=== PATIENT | female | born 2000 | race Caucasian/White ===

== ENCOUNTER 2024-07-22 14:14 | Emergency (ER) | payer BC, SELFPAY ==
[2024-07-22 14:17] VITALS: BP 132/82; PULSE 120; RESP 18; TEMP 36.6; O2SAT 98; BMI 25.3
--- NOTE | 2024-07-22 14:33 | ED.ABDPAIN ---
HPI - Abdominal Pain General Time Seen by Provider: 14:33 Date Seen: 08/02/24 Chief Complaint: Abdominal Pain Stated Complaint: Ulcerative colitis flareup Time Seen by Provider: 07/22/24 14:33 Source: patient, RN notes reviewed and old records reviewed Mode of arrival: ambulatory Limitations: no limitations History of Present Illness HPI narrative: Sandra is a very pleasant 24-year-old female diagnosed with ulcerative colitis by colonoscopy in the past year who comes to the emergency room with complaints of abdominal pain stomach cramps nausea and vomiting. Sandra notes that she had been having ?stomach issues? and had a colonoscopy at which time she was found to have ulcerative colitis. She has no family history of this. She had her 1st ulcerative colitis flare approximately 1 month ago and was seen in [place]. She was experiencing stomach cramps bloody in tarry stools. At that time they started steroids. She had tapered down to 5 mg daily of prednisone when she noticed an increase of her abdominal pain and was seen on July 20 by a GI specialist at [facility]. They increased her some prednisone to 12.5 mg a day but she and her friend who accompanies her here today note that they have not started that medicine and is still at the pharmacy. Today she states that her abdominal discomfort is worse and that she is experiencing nausea and vomiting and lightheadedness. She has not had any fevers but does note feeling sweaty. She had her gallbladder removed on May 01. She denies any possibility of . Currently patient is on mesalamine, fluoxetine, Zofran, and Compazine. Related Data Home Medications ?Medication ?Instructions ?Recorded ?Confirmed fluoxetine 20 mg capsule 20 mg PO DAILY 07/22/24 07/22/24 mesalamine 0.375 gram 1.5 g PO QAM 07/22/24 07/22/24 capsule,extended release 24 hr Allergies Allergy/AdvReac Type Severity Reaction Status Date / Time No Known Drug Allergies Allergy Verified 07/22/24 14:20 Review of Systems Status of ROS Reports: 10 or more systems reviewed and unremarkable except as noted in History and below Const Reports: chills and fatigue; Denies: fever Eyes Denies: change in vision ENMT Denies: throat pain or nasal congestion Cardio Denies: chest pain or shortness of breath with exertion Resp Denies: shortness of breath or cough GI Reports: abdominal pain, nausea, vomiting and diarrhea; Denies: blood in stool Denies: painful urination Endo Reports: fatigue PFSH PFS Social History Smoking Status: Never smoker Do you use any of these nicotine containing products: None Second hand tobacco smoke exposure: No How often do you have a drink containing alcohol: monthly or less How many standard drinks containing alcohol do you have on a typical day: 1 or 2 How often do you have six or more drinks on one occasion: Never AUDIT-C Alcohol total score: 1 Non-prescribed substance use: denies use service: No Exam Narrative: Exam Narrative: Patient is alert and oriented. She is not in any acute distress and is interactive with her friend to his here. External ears eyes nose clear. Heart with a rapid rate but normal rhythm. Lungs are clear. Abdomen is with diffuse discomfort but no masses are palpated. No rebound tenderness. Lower extremities her without edema. She is moving all her extremities. Const: Vital Signs, click to edit/add: Vital Signs - 24 hr 07/22/24 14:17 Temperature 97.8 F Pulse Rate [Right Pulse Oximeter] 120 H Respiratory Rate 18 Blood Pressure [Ri ght Upper Arm] 132/82 Pulse Oximetry 98 Oxygen Delivery Me thod Room Air Documenting provider has reviewed patient's vital signs: yes Course Course ED Course: Differential diagnosis includes but is not limited to ulcerative colitis flare, gastroenteritis, anxiety. Will place IV give 1 L of normal saline Zofran 4 mg and dexamethasone 10 mg. At this time will hold off on any pain medications as up-to-date suggest avoiding narcotics as this could cause toxic megacolon and NSAIDs can worsen ulcerative colitis. Reevaluation(s) Reevaluation #1: Patient had continued vomiting after Zofran and thus gave her Compazine 2.5 mg IV. Vomiting has improved. Will try to replace potassium as it is 3.0 today. Reevaluation #2: Patient is doing much better. She is now tolerating her potassium. She feels safe going home after receiving 2 L of normal saline. Vital Signs Vital signs: Initial Vital Signs Temperature 97.8 F 07/22/24 14:17 Temperature Source Temporal Artery Scan 07/22/24 14:17 Pulse Rate 120 H 07/22/24 14:17 Respiratory Rate 18 07/22/24 14:17 Blood Pressure 132/82 07/22/24 14:17 Blood Pressure Mean 98 07/22/24 14:17 Blood Pressure Position Sitting 07/22/24 14:17 Pulse Oximetry 98 07/22/24 14:17 Oxygen Delivery Method Room Air 07/22/24 14:17 Vital Signs Temperature 97.8 F 07/22/24 14:17 Pulse Rate 120 H 07/22/24 14:17 Respiratory Rate 18 07/22/24 14:17 Blood Pressure 132/82 07/22/24 14:17 Pulse Oximetry 98 07/22/24 14:17 Oxygen Delivery Method Room Air 07/22/24 14:17 Temperature 97.8 F 07/22/24 14:17 Pulse Rate 120 H 07/22/24 14:17 Respiratory Rate 18 07/22/24 14:17 Blood Pressure 132/82 07/22/24 14:17 Pulse Oximetry 98 07/22/24 14:17 Oxygen Delivery Method Room Air 07/22/24 14:17 Medications Administered Medications: Discontinued Medications Generic Name Dose Route Start Last Admin Trade Name Ramirezq PRN Reason Stop Dose Admin Dexamethasone 10 mg 07/22/24 14:43 07/22/24 15:04 Dexamethasone 10 Mg/Ml Inj IVP 07/22/24 14:44 10 mg ONCE ONE Administration Sodium Chloride 1,000 mls @ 1,000 mls/hr 07/22/24 14:44 07/22/24 16:04 0.9 % Sodium Chloride 1000 Ml IV 07/22/24 15:43 Infused .Q1H BERNARDO Infusion Sodium Chloride 1,000 mls @ 1,000 mls/hr 07/22/24 16:21 07/22/24 17:04 0.9 % Sodium Chloride 1000 Ml IV 07/22/24 17:20 Infused .Q1H BERNARDO Infusion Ondansetron HCl 4 mg 07/22/24 14:43 07/22/24 15:02 Ondansetron 2 Mg/Ml Inj IVP 07/22/24 14:44 4 mg ONCE ONE Administration Potassium Bicarbonate 50 meq 07/22/24 17:17 07/22/24 17:22 Potassium Bicarb 25 Meq Effervescent Tab PO 07/22/24 17:18 50 meq ONCE ONE Administration Prochlorperazine 2.5 mg 07/22/24 15:59 07/22/24 16:03 Prochlorperazine 5 Mg/Ml Vial IVP 07/22/24 16:00 2.5 mg ONCE ONE Administration MDM - Abdominal Pain MDM Narrative Medical decision making narrative: 1. Ulcerative colitis flare-patient notes ongoing flare and recent visit to GI specialists with instructions to increase prednisone to 12.5 mg daily. Patient has not done that at this point. Patient given IV dexamethasone 10 mg and instructed to continue the 12.5 mg daily starting tomorrow. 4+ urinary ketones noted. The patient received 2 L of normal saline. Initial Zofran minimally helped vomiting and thus she was given Compazine 2.5 mg IV with complete relief of symptoms. Patient does think she is having darker or bloody stools but hemoglobin is reassuring today at 15.5 and white count reassuring at 10.33. No imaging done today given her significant relief of symptoms and abdominal exam. 2. Hypokalemia-potassium 3.0. Fifty mEq of p.o. potassium taken p.o.. 3. Disposition- home at this time. Recommend starting the higher dose of prednisone tomorrow if she did receive dexamethasone in the ED today. Recommend follow-up with her team primary care physician. patient does have Compazine tablets that she may use at home as needed. Of course, for worsening symptoms recommend seeking medical attention at emergency room. Medical Records Medical records narrative: No available records in our system Lab Data Attestation: I reviewed the patient's lab results. Labs: Lab Results 07/22/24 07/22/24 Range/Units 14:50 15:00 WBC 10.33 (4.50-11.00) K/uL RBC 5.30 H (4.00-5.20) m/uL Hgb 15.5 (12.0-16.0) gm/dL Hct 45.7 (33.0-51.0) % MCV 86 (80-100) fL MCH 29 (26-34) pg MCHC 34 (32-36) gm/dL RDW Coeff of Hiral 12.4 (11.5-15.5) % Plt Count 339 (140-440) K/uL Neut % (Auto) 69.9 (42.0-72.0) % Lymph % (Auto) 17.4 L (20-44) % [place] % (Auto) 9.7 (0.0-11.0) % Eos % (Auto) 1.9 (0.0-7.0) % Baso % (Auto) 0.2 (0.0-3.0) % Neut # (Auto) 7.22 H (1.7-7.0) K/uL Lymph # (Auto) 1.80 (0.90-2.90) K/uL [place] # (Auto) 1.00 H (0.00-0.90) K/UL Eos # (Auto) 0.20 (0.00-0.50) K/uL Baso # (Auto) 0.02 (0.00-0.30) K/uL Abs Immat Gran (auto) 0.09 (0.00-0.30) K/uL Imm/Tot Granulo (auto) 0.9 % Sodium 139 (135-149) mmol/L Potassium 3.0 L (3.6-5.1) mmol/L Chloride 98 (96-114) mmol/L Carbon Dioxide 26 (20-32) mmol/L Anion Gap 15 (7-15) mEq/L BUN 8 (5-24) mg/dL Creatinine 0.5 (0.5-1.5) mg/dL Estimated Creat Clear 156.12 Estimated GFR 134 ml/min Glucose 100 (60-115) mg/dL Calcium 9.3 (8.4-10.6) mg/dL Total Bilirubin 0.4 (0.1-1.5) mg/dL AST 20 (12-35) U/L ALT 14 (4-35) U/L Alkaline Phosphatase 96 (40-150) U/L C-Reactive Protein 1.0 (0.5-1.0) mg/dL Total Protein 8.4 H (6.0-8.3) g/dL Albumin 5.0 (3.3-5.0) g/dL Urine Color Yellow (Yellow) Urine Appearance Clear (Clear) Urine pH 5.5 (5.0-8.5) Ur Specific [place] >= 1.030 (1.000-1.030) Urine Protein Trace A (Negative) Urine Glucose (UA) Negative (Negative) Urine Ketones 4+ A (Negative) Urine Blood Negative (Negative) Urine Nitrite Negative (Negative) Urine Bilirubin 1+ A (Negative) Urine Urobilinogen 0.2 (0.2-1.0) Ur Leukocyte Esterase Negative (Negative) Urine RBC 0-2 (0-2) Urine WBC 0-2 (0-5) Ur Squamous Epith Cells Few (None-Few) Amorphous Sediment Moderate A (None) Urine Bacteria None (None) Discharge Plan Discharge Clinical Impression: Ulcerative colitis, Abdominal pain, Hypokalemia Patient Disposition: Home, Self-Care Condition: Improved Additional Instructions: Start your higher dose of prednisone 12.5 mg tomorrow. Try to stay as hydrated as possible not just with water but also electrolyte containing compounds (Powerade, Gatorade, etc). Seek medical attention for worsening symptoms. You responded better to Compazine also known as prochlorperazine so you may use this medication if needed for vomiting as this is already prescribed to you Prescriptions: No Action fluoxetine 20 mg capsule 20 mg PO DAILY mesalamine 0.375 gram capsule,extended release 24hr 1.5 g PO QAM Follow Up/Referrals: Ladan Lopez MD [Primary Care Provider] - Stand Alone Forms: [employer] Info Instructions
[2024-07-22 14:56] LABS: Appearance Urine Clear (Clear); Bilirubin Urine 1+ (Negative); Blood Urine Negative (Negative); Color Urine Yellow (Yellow); Glucose Urine Negative (Negative); Ketones Urine 4+ (Negative); Leukocyte Esterase Urine Negative (Negative); Nitrite Urine Negative (Negative); Protein Urine Trace (Negative); Specific Gravity Urine >= 1.030 (1.000-1.030); Urobilinogen Urine 0.2 (0.2-1.0); pH Urine 5.5 (5.0-8.5)
[2024-07-22] MEDS: 0.9 % SODIUM CHLORIDE 1000 ml 1,000 ML IV ×2 (15:01→16:05)
[2024-07-22] MEDS: ONDANSETRON 2 MG/ML inj 4 MG IVP (15:02)
[2024-07-22] MEDS: dexAMETHasone 10 MG/ML inj IVP (15:04)
[2024-07-22 15:07] LABS: Amorphous Sediment Urine Moderate; RBC Urine 0-2 (0-2); Squamous Epithelial Cell Urine Few (None-Few); WBC Urine 0-2 (0-5)
[2024-07-22 15:25] LABS: Basophils Absolute Auto 0.02 K/uL (0.00-0.30); Basophils Percent Auto 0.2 % (0.0-3.0); Eosinophils Percent Auto 1.9 % (0.0-7.0); Hematocrit 45.7 % (33.0-51.0); Hemoglobin* 15.5 gm/dL (12.0-16.0); Immature Granulocytes Abs Auto 0.09 K/uL (0.00-0.30); Immature Granulocytes Pct Auto 0.9 %; Lymphocytes Percent Auto 17.4 % (20-44); Mean Corpuscular HGB Conc 34 gm/dL (32-36); Mean Corpuscular Hemoglobin 29 pg (26-34); Mean Corpuscular Volume 86 fL (80-100); Monocytes Percent Auto 9.7 % (0.0-11.0); Neutrophils Absolute Auto 7.22 K/uL (1.7-7.0); Neutrophils Percent Auto 69.9 % (42.0-72.0); Platelet Count* 339 K/uL (140-440); RDW Coefficient of Variation % 12.4 % (11.5-15.5); Slide Review Reflex No; White Blood Count* 10.33 K/uL (4.50-11.00)
[2024-07-22 15:36] LABS: Chloride* 98 mmol/L (96-114)
[2024-07-22 15:37] LABS: Sodium* 139 mmol/L (135-149)
[2024-07-22 15:39] LABS: Creatinine* 0.5 mg/dL (0.5-1.5); Est. Creatinine Clearance* 156.12; Estimated Glomerular Filt Rate 134 ml/min
[2024-07-22 15:40] LABS: Alanine Aminotransferase* 14 U/L (4-35); Alkaline Phosphatase* 96 U/L (40-150); Anion Gap 15 mEq/L (7-15); Aspartate Amino Transferase* 20 U/L (12-35); Bilirubin Total* 0.4 mg/dL (0.1-1.5); Blood Urea Nitrogen* 8 mg/dL (5-24); Calcium* 9.3 mg/dL (8.4-10.6); Carbon Dioxide* 26 mmol/L (20-32); Glucose* 100 mg/dL (60-115); Total Protein* 8.4 g/dL (6.0-8.3)
[2024-07-22] MEDS: PROCHLORPERAZINE 5 MG/ML VIAL 2.5 MG IVP (16:03)
[2024-07-22] MEDS: POTASSIUM BICARB 25 MEQ EFFERVESCENT TAB 50 MEQ PO (17:22)
== END 2024-07-22 18:44 | disposition home or self-care (01) ==
PROVIDERS: Emergency Provider Family Medicine; PCP General Practice
DX: K51.90 Ulcerative colitis, unspecified, without complications (principal); E87.6 Hypokalemia
CPT/HCPCS: 36415; 80053; 81001; 85025; 86140; 96374; 96375; 99284; A9270; J0780; J1100; J2405; J7030

== ENCOUNTER 2024-08-16 17:03 | Emergency (ER) | payer BC, SELFPAY ==
[2024-08-16 17:17] VITALS: BP 107/71; PULSE 102; RESP 16; TEMP 36.9; O2SAT 98; BMI 25.0
--- NOTE | 2024-08-16 17:36 | ED_ITS ---
HPI - General Adult General Chief complaint: Abdominal Pain Stated complaint: vomiting blood Time Seen by Provider: 08/16/24 17:29 History of Present Illness HPI narrative: C/O abdominal/ back pain pt states that she had 2 episode of vomiting today and one had bright red blood in it. plus multiple episodes of emesis yesterday. pt. has hx. of UC and gallbladder removal. pain started Wednesday of last week while at rest. pt. denies any trauma to the area or recent bending/ lifting /twisting. 24-year-old young woman presenting to the emergency department with concern of vomiting blood. Has had abdominal pain generalized and with some back pain now about day 5. Has had some looser stools no blood. Does have a history of hemorrhoids and history of rectal bleeding I believe associated with ulcerative colitis. Multiple vomiting episodes yesterday. Twice today with some small clots of blood in 1 of the emesis. No fever. No dysuria though has some discomfort with urination. Experiencing also headache. Has been treating with rather bland diet. No concerning food ingestions recently. History of cholecystectomy. Diagnosed with ulcerative colitis about a year ago. Currently being tapered on flare from ulcerative colitis at 10 mg prednisone. Does normally take mesalamine as well. Related Data Home Medications ?Medication ?Instructions ?Recorded ?Confirmed fluoxetine 20 mg capsule 10 mg PO DAILY 07/22/24 08/16/24 mesalamine 0.375 gram 1.5 g PO QAM 07/22/24 07/22/24 capsule,extended release 24 hr prednisone 10 mg tablet PO 08/16/24 Allergies Allergy/AdvReac Type Severity Reaction Status Date / Time No Known Drug Allergies Allergy Verified 08/16/24 19:21 Review of Systems Status of ROS: Reports: 6 or more systems reviewed and unremarkable except as noted in History and below [facility] Social History Smoking Status: Never smoker Do you use any of these nicotine containing products: None Second hand tobacco smoke exposure: No How often do you have a drink containing alcohol: never How often do you have six or more drinks on one occasion: Never AUDIT-C Alcohol total score: 0 Non-prescribed substance use: denies use service: No Exam Narrative: Exam Narrative: Pleasant. Calm. Skin is warm dry. Breathing easily. Lungs are clear. Heart in elevated rate regular rhythm. Oropharynx WNL without lesions. Neck is supp le without lymphadenopathy. Abdomen with present bowel sounds is diffusely mildly uncomfortable. No peritoneal signs. A little sore to percussion in the left flank. Extremities are well perfused without edema. Skin is warm and dry without rash apparent. Const: Vital Signs, click to edit/add: Vital Signs - 24 hr 08/16/24 17:17 08/16/24 18:04 08/16/24 20:32 Temperature 98.4 F Pulse Rate [Pulse Oximeter] 102 H 88 88 Respiratory Rate 16 16 Blood Pressure [[facility] Upper Arm] 107/71 106/59 L Pulse Oximetry 98 98 Oxygen Delivery Me thod Room Air Room Air Documenting provider has reviewed patient's vital signs: yes Course Vital Signs Vital signs: Initial Vital Signs Temperature 98.4 F 08/16/24 17:17 Temperature Source Temporal Artery Scan 08/16/24 17:17 Pulse Rate 102 H 08/16/24 17:17 Respiratory Rate 16 08/16/24 17:17 Blood Pressure 107/71 08/16/24 17:17 Blood Pressure Mean 83 08/16/24 17:17 Blood Pressure Position Sitting 08/16/24 17:17 Pulse Oximetry 98 08/16/24 17:17 Oxygen Delivery Method Room Air 08/16/24 17:17 Vital Signs Temperature 98.4 F 08/16/24 17:17 Pulse Rate 102 H 08/16/24 17:17 Respiratory Rate 16 08/16/24 17:17 Blood Pressure 107/71 08/16/24 17:17 Pulse Oximetry 98 08/16/24 17:17 Oxygen Delivery Method Room Air 08/16/24 17:17 Temperature 98.4 F 08/16/24 17:17 Pulse Rate 88 08/16/24 20:32 Respiratory Rate 16 08/16/24 20:32 Blood Pressure 106/59 L 08/16/24 20:32 Pulse Oximetry 98 08/16/24 20:32 Oxygen Delivery Method Room Air 08/16/24 20:32 Medications Administered Medications: Discontinued Medications Generic Name Dose Route Start Last Admin Trade Name Freq PRN Reason Stop Dose Admin Sodium Chloride 500 mls @ 500 mls/hr 08/16/24 17:48 08/16/24 19:35 0.9 % Sodium Chloride 500 Ml IV 08/16/24 18:47 Not Given .Q1H ONE Sodium Chloride 1,000 mls @ 1,000 mls/hr 08/16/24 19:02 08/16/24 20:34 0.9 % Sodium Chloride 1000 Ml IV 08/16/24 20:01 Infused .Q1H ONE Infusion Ketorolac Tromethamine 30 mg 08/16/24 17:48 08/16/24 18:10 Ketorolac 30 Mg/Ml Inj IVP 08/16/24 17:49 30 mg ONCE ONE Administration Ondansetron HCl 4 mg 08/16/24 17:48 08/16/24 18:10 Ondansetron 2 Mg/Ml Inj IVP 08/16/24 17:49 4 mg ONCE ONE Administration Medical Decision Making MDM Narrative Medical decision making narrative: She could be having ulcerative colitis flare in addition to an infectious gastroenteritis. Repeated vomiting I think would explain the noted hematemesis. No history of concern otherwise for esophageal varices. Would look for urinary tract infection. Symptoms seem inconsistent with kidney stone/ureteral colic. We treated for pain with ketorolac which as IV should not think will trouble ulcerative colitis. Also give Zofran. IV hydration as well. Symptoms improved during time in the ER. Blood and associated bilirubin present in urine. With this and findings of moderately elevated transaminases, did ultimately image abdomen. She has had cholecystectomy as noted above. Generally does not appear to have infection. Adding hepatitis panel. Monospot is negative. Review of IV contrasted CT of abdomen and pelvis by myself seems to show a eliazar le prominent liver and spleen Radiology over-read as below TECHNIQUE: CT of the abdomen and pelvis with intravenous contrast (74 milliliters Isovue 370). FINDINGS: Lung bases: No pleural effusion. Liver: Smooth hepatic contour. No suspicious hepatic lesions are identified. Gallbladder and biliary tree: Surgically absent gallbladder. Spleen: Borderline splenomegaly. Pancreas: Normal. Adrenal glands: Normal. Kidneys and ureters: No hydroureteronephrosis. No suspicious renal lesions are identified. Bladder: The bladder is decompressed. Visualized reproductive organs: The uterus is anteverted. Gastrointestinal tract: Mild apparent sigmoid colon wall thickening, possibly due to underdistention. No associated fat stranding. No focal abnormally dilated loops of bowel. Peritoneal cavity: No free fluid or free air. Lymph nodes: Several abnormally enlarged perirectal lymph nodes measuring up to 9 millimeters (2/125). Abnormally numerous and mildly prominent although subcentimeter lymph nodes throughout the abdominal mesentery. Vessels: No abdominal aortic aneurysm. Abdominal and pelvic wall: Mild scarring in the ventral abdominal wall. Bones: No acute osseous findings. No CT findings to suggest sacroiliitis. IMPRESSION: 1. Several abnormally enlarged perirectal lymph nodes measuring up to 9 millimeters. Abnormally numerous and mildly prominent although nonenlarged lymph nodes throughout the abdominal mesentery. 2. Mild apparent sigmoid colon wall thickening, possibly due to underdistention. Colitis is not excluded. 3. Borderline splenomegaly. 4. Status post cholecystectomy. I did discuss findings of enlarged lymph nodes as well with Sandra. Would suspect this to be inflammatory/reactive but would recommend follow-up. See patient discharge plan for further discussion Medical Records Medical records reviewed: Yes I reviewed the patient's medical records Lab Data Lab results reviewed: Yes I reviewed the patient's lab results Labs: Lab Results 08/16/24 08/16/24 08/16/24 Range/Units 18:00 18:16 18:44 WBC 7.37 (4.50-11.00) K/uL RBC 4.09 (4.00-5.20) m/uL Hgb 11.9 L (12.0-16.0) gm/dL Hct 35.8 (33.0-51.0) % MCV 88 (80-100) fL MCH 29 (26-34) pg MCHC 33 (32-36) gm/dL RDW Coeff of Hiral 13.4 (11.5-15.5) % Plt Count 142 (140-440) K/uL Neut % (Auto) 19.7 L (42.0-72.0) % Lymph % (Auto) 72.2 H (20-44) % [place] % (Auto) 5.8 (0.0-11.0) % Eos % (Auto) 1.6 (0.0-7.0) % Baso % (Auto) 0.3 (0.0-3.0) % Neut # (Auto) 1.50 L (1.7-7.0) K/uL Lymph # (Auto) 5.30 H (0.90-2.90) K/uL [place] # (Auto) 0.40 (0.00-0.90) K/UL Eos # (Auto) 0.12 (0.00-0.50) K/uL Baso # (Auto) 0.02 (0.00-0.30) K/uL Abs Immat Gran (auto) 0.03 (0.00-0.30) K/uL Imm/Tot Granulo (auto) 0.4 % ESR 12 (2-20) mm/hr Sodium 137 (135-149) mmol/L Potassium 3.2 L (3.6-5.1) mmol/L Chloride 105 (96-114) mmol/L Carbon Dioxide 24 (20-32) mmol/L Anion Gap 8 (7-15) mEq/L BUN 4 L (5-24) mg/dL Creatinine 0.4 L (0.5-1.5) mg/dL Estimated Creat Clear 195.15 Estimated GFR 142 ml/min Glucose 111 (60-115) mg/dL Calcium 8.2 L (8.4-10.6) mg/dL Total Bilirubin 0.7 (0.1-1.5) mg/dL Direct Bilirubin 0.4 (0.0-0.5) mg/dL AST 156 H (12-35) U/L ALT 310 H (4-35) U/L Alkaline Phosphatase 167 H (40-150) U/L C-Reactive Protein 0.7 (0.5-1.0) mg/dL Total Protein 6.9 (6.0-8.3) g/dL Albumin 4.0 (3.3-5.0) g/dL Urine Color [place] A (Yellow) Urine Appearance Cloudy A (Clear) Urine pH 7.0 (5.0-8.5) Ur Specific [place] 1.020 (1.000-1.030) Urine Protein 1+ A (Negative) Urine Glucose (UA) Negative (Negative) Urine Ketones Trace A (Negative) Urine Blood 2+ A (Negative) Urine Nitrite Negative (Negative) Urine Bilirubin 1+ A (Negative) Urine Urobilinogen >=8.0 A (0.2-1.0) Ur Leukocyte Esterase Negative (Negative) Urine RBC 10-25 A (0-2) Urine WBC 0-2 (0-5) Ur Squamous Epith Cells Few (None-Few) Amorphous Sediment Many A (None) Urine Bacteria Few A (None) Urine HCG, Qual Negative (Negative) Monoscreen Negative (Negative) Lab Acknowledgement Test Added 08/16/24 Range/Units 19:57 WBC (4.50-11.00) K/uL RBC (4.00-5.20) m/uL Hgb (12.0-16.0) gm/dL Hct (33.0-51.0) % MCV (80-100) fL MCH (26-34) pg MCHC (32-36) gm/dL RDW Coeff of Hiral (11.5-15.5) % Plt Count (140-440) K/uL Neut % (Auto) (42.0-72.0) % Lymph % (Auto) (20-44) % [place] % (Auto) (0.0-11.0) % Eos % (Auto) (0.0-7.0) % Baso % (Auto) (0.0-3.0) % Neut # (Auto) (1.7-7.0) K/uL Lymph # (Auto) (0.90-2.90) K/uL [place] # (Auto) (0.00-0.90) K/UL Eos # (Auto) (0.00-0.50) K/uL Baso # (Auto) (0.00-0.30) K/uL Abs Immat Gran (auto) (0.00-0.30) K/uL Imm/Tot Granulo (auto) % ESR (2-20) mm/hr Sodium (135-149) mmol/L Potassium (3.6-5.1) mmol/L Chloride (96-114) mmol/L Carbon Dioxide (20-32) mmol/L Anion Gap (7-15) mEq/L BUN (5-24) mg/dL Creatinine (0.5-1.5) mg/dL Estimated Creat Clear Estimated GFR ml/min Glucose (60-115) mg/dL Calcium (8.4-10.6) mg/dL Total Bilirubin (0.1-1.5) mg/dL Direct Bilirubin (0.0-0.5) mg/dL AST (12-35) U/L ALT (4-35) U/L Alkaline Phosphatase (40-150) U/L C-Reactive Protein (0.5-1.0) mg/dL Total Protein (6.0-8.3) g/dL Albumin (3.3-5.0) g/dL Urine Color (Yellow) Urine Appearance (Clear) Urine pH (5.0-8.5) Ur Specific [place] (1.000-1.030) Urine Protein (Negative) Urine Glucose (UA) (Negative) Urine Ketones (Negative) Urine Blood (Negative) Urine Nitrite (Negative) Urine Bilirubin (Negative) Urine Urobilinogen (0.2-1.0) Ur Leukocyte Esterase (Negative) Urine RBC (0-2) Urine WBC (0-5) Ur Squamous Epith Cells (None-Few) Amorphous Sediment (None) Urine Bacteria (None) Urine HCG, Qual (Negative) Monoscreen (Negative) Lab Acknowledgement Test Added Discharge Plan Discharge Clinical Impression: Abdominal pain, Hepatitis, Ulcerative colitis, Hematuria Patient Disposition: Home, Self-Care Condition: Improved Additional Instructions: Focus on hydration and continued bland diet. Double your prednisone as we discussed/settled on over the next week and then return to your taper. Please follow-up early next week for recheck of your labs including liver and urinalysis. Hepatitis panel is pending here. If positive you should receive a call with further recommendation. Take copy of this image report to your follow-up appointment as well. Some of this imaging might require follow-up including these nodes which I am presuming to be reactive/inflammatory in nature at this point. Be seen sooner for marked increase in persistent in pain, increasing bleeding, associated fever. If needed Burtrum from [facility]. Hydrocodone, as an opiate, can be constipating. Consider taking 1-2 tablets of senna product on the days you might be using Burtrum. Prescriptions: No Action fluoxetine 20 mg capsule 10 mg PO DAILY mesalamine 0.375 gram capsule,extended release 24hr 1.5 g PO QAM prednisone 10 mg tablet PO Follow Up/Referrals: Ladan Lopez MD [Primary Care Provider] - Stand Alone Forms: [employer] Info Instructions
[2024-08-16 18:04] VITALS: PULSE 88
[2024-08-16 18:07] LABS: Basophils Absolute Auto 0.02 K/uL (0.00-0.30); Basophils Percent Auto 0.3 % (0.0-3.0); Eosinophils Absolute Auto 0.12 K/uL (0.00-0.50); Eosinophils Percent Auto 1.6 % (0.0-7.0); Hematocrit 35.8 % (33.0-51.0); Hemoglobin* 11.9 gm/dL (12.0-16.0); Immature Granulocytes Abs Auto 0.03 K/uL (0.00-0.30); Immature Granulocytes Pct Auto 0.4 %; Lymphocytes Percent Auto 72.2 % (20-44); Mean Corpuscular HGB Conc 33 gm/dL (32-36); Mean Corpuscular Hemoglobin 29 pg (26-34); Mean Corpuscular Volume 88 fL (80-100); Monocytes Percent Auto 5.8 % (0.0-11.0); Neutrophils Percent Auto 19.7 % (42.0-72.0); Platelet Count* 142 K/uL (140-440); RDW Coefficient of Variation % 13.4 % (11.5-15.5); Red Blood Count 4.09 m/uL (4.00-5.20); White Blood Count* 7.37 K/uL (4.50-11.00)
[2024-08-16] MEDS: ONDANSETRON 2 MG/ML inj 4 MG IVP (18:10)
[2024-08-16] MEDS: KETOROLAC 30 MG/ML inj IVP (18:10)
[2024-08-16 18:22] LABS: Appearance Urine Cloudy (Clear); Bilirubin Urine 1+ (Negative); Blood Urine 2+ (Negative); Color Urine Orange (Yellow); Glucose Urine Negative (Negative); Ketones Urine Trace (Negative); Leukocyte Esterase Urine Negative (Negative); Nitrite Urine Negative (Negative); Protein Urine 1+ (Negative); Urobilinogen Urine >=8.0 (0.2-1.0)
[2024-08-16 18:25] LABS: Slide Review Reflex No
[2024-08-16 18:26] LABS: Ur HCG Qualitative* Negative (Negative)
[2024-08-16 18:31] LABS: Chloride* 105 mmol/L (96-114)
[2024-08-16 18:32] LABS: Potassium* 3.2 mmol/L (3.6-5.1); Sodium* 137 mmol/L (135-149)
[2024-08-16 18:34] LABS: Creatinine* 0.4 mg/dL (0.5-1.5); Est. Creatinine Clearance* 195.15; Estimated Glomerular Filt Rate 142 ml/min
[2024-08-16 18:35] LABS: Anion Gap 8 mEq/L (7-15); Blood Urea Nitrogen* 4 mg/dL (5-24); Carbon Dioxide* 24 mmol/L (20-32)
[2024-08-16 18:36] LABS: Calcium* 8.2 mg/dL (8.4-10.6); Glucose* 111 mg/dL (60-115)
[2024-08-16 18:38] LABS: C Reactive Protein* 0.7 mg/dL (0.5-1.0)
[2024-08-16 18:45] LABS: Amorphous Sediment Urine Many; Bacteria Urine Few; Squamous Epithelial Cell Urine Few (None-Few); WBC Urine 0-2 (0-5)
--- NOTE | 2024-08-16 19:03 | CRLHL7_ITS ---
For Patients: As a result of the Century Cures Act, medical imaging exams and procedure reports are released immediately into your electronic medical record. You may view this report before your referring provider. If you have questions, please contact your health care provider. INDICATION: Generalized abdominal pain and new hematuria. History of ulcerative colitis. COMPARISON: None. TECHNIQUE: CT of the abdomen and pelvis with intravenous contrast (74 milliliters Isovue 370). FINDINGS: Lung bases: No pleural effusion. Liver: Smooth hepatic contour. No suspicious hepatic lesions are identified. Gallbladder and biliary tree: Surgically absent gallbladder. Spleen: Borderline splenomegaly. Pancreas: Normal. Adrenal glands: Normal. Kidneys and ureters: No hydroureteronephrosis. No suspicious renal lesions are identified. Bladder: The bladder is decompressed. Visualized reproductive organs: The uterus is anteverted. Gastrointestinal tract: Mild apparent sigmoid colon wall thickening, possibly due to underdistention. No associated fat stranding. No focal abnormally dilated loops of bowel. Peritoneal cavity: No free fluid or free air. Lymph nodes: Several abnormally enlarged perirectal lymph nodes measuring up to 9 millimeters (2/125). Abnormally numerous and mildly prominent although subcentimeter lymph nodes throughout the abdominal mesentery. Vessels: No abdominal aortic aneurysm. Abdominal and pelvic wall: Mild scarring in the ventral abdominal wall. Bones: No acute osseous findings. No CT findings to suggest sacroiliitis. IMPRESSION: 1. Several abnormally enlarged perirectal lymph nodes measuring up to 9 millimeters. Abnormally numerous and mildly prominent although nonenlarged lymph nodes throughout the abdominal mesentery. 2. Mild apparent sigmoid colon wall thickening, possibly due to underdistention. Colitis is not excluded. 3. Borderline splenomegaly. 4. Status post cholecystectomy. Please note that all CT scans at this facility use dose modulation, iterative reconstruction, and/or weight-based dosing when appropriate to reduce radiation dose to as low as reasonably achievable. Dictated by Nicholas Corado MD @ 08/16/2024 8:27:37 PM (Electronically Signed)
[2024-08-16 19:08] LABS: Erythrocyte SedimentationRate* 12 mm/hr (2-20)
[2024-08-16 19:09] LABS: Aspartate Amino Transferase* 156 U/L (12-35); Bilirubin Direct* 0.4 mg/dL (0.0-0.5); Bilirubin Total* 0.7 mg/dL (0.1-1.5); Total Protein* 6.9 g/dL (6.0-8.3)
[2024-08-16 19:10] LABS: Alanine Aminotransferase* 310 U/L (4-35); Alkaline Phosphatase* 167 U/L (40-150)
[2024-08-16] MEDS: 0.9 % SODIUM CHLORIDE 1000 ml 1,000 ML IV (19:35)
[2024-08-16 20:13] LABS: Mono Screen* Negative (Negative)
[2024-08-16 20:32] VITALS: BP 106/59; PULSE 88; RESP 16; O2SAT 98
[2024-08-18 14:05] LABS: Hep A Ab, IgM Negative (Negative); Hep B Core Ab, IgM Negative (Negative); Hep B Surface Antigen Negative (Negative); Hep C Ab by CIA Index 0.08 IV; Hep C Ab by CIA Interp Negative (Negative)
== END 2024-08-16 21:13 | disposition home or self-care (01) ==
PROVIDERS: Emergency Provider Family Medicine; PCP General Practice
DX: R10.9 Unspecified abdominal pain (principal); K75.9 Inflammatory liver disease, unspecified; K51.90 Ulcerative colitis, unspecified, without complications; R31.9 Hematuria, unspecified
CPT/HCPCS: 36415; 74177; 80048; 80074; 80076; 81001; 81025; 85025; 85651; 86140; 86308; 87086; 96374; 96375; 99284; 99285; J1885; J2405; J7030; Q9967

== ENCOUNTER 2024-10-08 19:04 | Emergency (ER) | payer BC, SELFPAY ==
[2024-10-08 19:12] VITALS: BP 121/78; PULSE 104; RESP 20; TEMP 36.6; O2SAT 98; BMI 25.0
--- NOTE | 2024-10-08 19:22 | CRLHL7_ITS ---
For Patients: As a result of the Century Cures Act, medical imaging exams and procedure reports are released immediately into your electronic medical record. You may view this report before your referring provider. If you have questions, please contact your health care provider. Indication: Bleeding after colonoscopy, ulcerative colitis. Technique: Abdomen 3 view. Comparison: CT abdomen and pelvis 08/16/2024. Findings: Bowel: Nonobstructive bowel gas pattern. Large colonic stool burden in the ascending colon. Other: No sign of free air. No sign of soft tissue mass. Cholecystectomy clips. The lung bases are clear. Osseous structures are unremarkable for age. Impression: No evidence of an acute intra-abdominal process. Dictated by Hebert Oliveira MD @ 10/08/2024 8:13:52 PM (Electronically Signed)
--- NOTE | 2024-10-08 19:27 | ED_ITS ---
HPI - General Adult General Date Seen: 10/08/24 <Paloma Titus MD - Last Filed: 10/10/24 17:30> Chief complaint: GI Bleed <Paloma Titus MD - Last Filed: 10/10/24 17:30> Stated complaint: Post Colonoscopy bleed <Paloma Titus MD - Last Filed: 10/10/24 17:30> Time Seen by Provider: 10/08/24 19:07 <Paloma Titus MD - Last Filed: 10/10/24 17:30> Source: patient <Paloma Titus MD - Last Filed: 10/10/24 17:30> Mode of arrival: ambulatory <Paloma Titus MD - Last Filed: 10/10/24 17:30> Limitations: no limitations <Paloma Titus MD - Last Filed: 10/10/24 17:30> History of Present Illness HPI narrative: Patient is a 24-year-old young woman with a prior diagnosis of ulcerative colitis. She had a colonoscopy done through the [facility] system on Wednesday, presents to the ER on Wednesday due to frequent bloody stools since that time. She says the colonoscopy was done because her mesalamine had not been as effective for symptom control in terms of pain. She did not have bloody stools prior to the colonoscopy. They did do biopsies. Her abdominal pain is pretty stable, not more significant than usual, but did not respond to meds at home. She has not had a fever, no vomiting. She says she has had too numerous to count bloody stools since Wednesday, at least 20 today. These are small volume, mucoid and bloody. She had 1 incontinent stool with coughing. She has felt a little lightheaded, no fainting. She is not anticoagulated. She is status post cholecystectomy, denies other abdominal surgeries. <Paloma Titus MD - Last Filed: 10/10/24 17:30> Related Data Home medications: Home Medications ?Medication ?Instructions ?Recorded ?Confirmed fluoxetine 20 mg capsule 10 mg PO DAILY 07/22/24 10/08/24 mesalamine 0.375 gram 1.5 g PO QAM 07/22/24 10/08/24 capsule,extended release 24 hr prochlorperazine maleate 5 mg PO 12/08/24 tablet <Paloma Titus MD - Last Filed: 10/10/24 17:30> Allergies/adverse reactions: Allergies Allergy/AdvReac Type Severity Reaction Status Date / Time No Known Drug Allergies Allergy Verified 10/08/24 19:14 <Paloma Titus MD - Last Filed: 10/10/24 17:30> Review of Systems Status of ROS: Reports: 10 or more systems reviewed and unremarkable except as noted in History and below <Paloma Titus MD - Last Filed: 10/10/24 17:30> [facility] Social History: Social History Smoking Status: Never smoker Do you use any of these nicotine containing products: None Second hand tobacco smoke exposure: No How often do you have a drink containing alcohol: never How often do you have six or more drinks on one occasion: Never AUDIT-C Alcohol total score: 0 Non-prescribed substance use: denies use service: No <Paloma Titus MD - Last Filed: 10/10/24 17:30> Exam Narrative: Exam Narrative: Vital signs reviewed In general, alert, nontoxic young woman. The shayla without difficulty. Head: Normocephalic, atraumatic. Eyes: Sclera clear. Pupils equal and reactive. ENT: Mucous membranes moist. Neck: Supple without adenopathy. Heart: Regular rate and rhythm without murmur. Lungs: Clear. No increased work of breathing, crackles or wheezes. Abdomen: Soft, nondistended. Some mild lower abdominal tenderness without re bound guarding or rigidity. Bowel sounds present. Extremities: Well perfused, pulses intact. No significant edema. Neurologic: Alert, conversant. Speech fluent, face symmetric. Moves all extrem ities equally. Skin: Warm, dry well perfused. Affect: Normal. <Paloma Titus MD - Last Filed: 10/10/24 17:30> Const: Vital Signs, click to edit/add: Vital Signs - 24 hr 10/08/24 19:12 10/08/24 19:58 Temperature 97.8 F Pulse Rate [Pulse Oximeter] 104 H 97 Respiratory Rate 20 18 Blood Pressure [Ri ght Upper Arm] 121/78 110/73 Pulse Oximetry 98 98 Oxygen Delivery Me thod Room Air Room Air <Paloma Ttius MD - Last Filed: 10/10/24 17:30> Vital Signs, click to edit/add: Vital Signs - 24 hr 10/08/24 19:12 10/08/24 19:58 Temperature 97.8 F Pulse Rate [Pulse Oximeter] 104 H 97 Respiratory Rate 20 18 Blood Pressure [Ri ght Upper Arm] 121/78 110/73 Pulse Oximetry 98 98 Oxygen Delivery Me thod Room Air Room Air <Sanford Cortes MD - Last Filed: 10/08/24 21:16> Documenting provider has reviewed patient's vital signs: yes <Paloma Titus MD - Last Filed: 10/10/24 17:30> Course Course ED Course: Presents with frequent mucoid in bloody stools since colonoscopy, minimal tachycardia noted on arrival with a heart rate of 104. Blood pressure is good. Exam is benign. Perforation unlikely but will obtain a plain film of the abdomen to look for free air. CBC, metabolic panel, CRP and lactate are pending. Type and screen ordered in case she is significantly anemic. Initial labs notable for normal white blood cell count, hemoglobin of 12.1. It was 11.9 a couple of months ago. Metabolic panel, CRP are pending. Lactate is normal 1.2. By my review, abdominal x-ray shows no free air or obstruction. Final radiology read is pending at this time. Care was discussed with the on- call physician for GI with [facility]. He recommended testing for C diff and a GI panel. In the absence of C diff, he would recommend treatment with prednisone taper. I have discussed all this with her. She feels she can manage at home, admission offered but she does not feel that she needs to stay in the hospital as she is able to stay hydrated and manage pain. Therefore, that will be the plan once C diff testing is complete. Will prescribe prednisone, she should touch base with her GI clinic tomorrow to let them know the status of things. Return any time for severe abdominal pain, fevers, fainting, or other worsening symptoms. <Paloma Titus MD - Last Filed: 10/10/24 17:30> Vital Signs Vital signs: Initial Vital Signs Temperature 97.8 F 10/08/24 19:12 Temperature Source Temporal Artery Scan 12/08/24 19:12 Pulse Rate 104 H 10/08/24 19:12 Pulse Rhythm Regular 10/08/24 19:12 Pulse Strength 3+ Normal 10/08/24 19:12 Respiratory Rate 20 10/08/24 19:12 Blood Pressure 121/78 10/08/24 19:12 Blood Pressure Mean 92 10/08/24 19:12 Blood Pressure Position Sitting 10/08/24 19:12 Pulse Oximetry 98 10/08/24 19:12 Oxygen Delivery Method Room Air 10/08/24 19:12 Vital Signs Temperature 97.8 F 10/08/24 19:12 Pulse Rate 104 H 10/08/24 19:12 Respiratory Rate 20 10/08/24 19:12 Blood Pressure 121/78 10/08/24 19:12 Pulse Oximetry 98 10/08/24 19:12 Oxygen Delivery Method Room Air 10/08/24 19:12 Temperature 97.8 F 10/08/24 19:12 Pulse Rate 103 H 10/08/24 21:18 Respiratory Rate 16 10/08/24 21:18 Blood Pressure 114/70 10/08/24 21:18 Pulse Oximetry 99 10/08/24 21:18 Oxygen Delivery Method Room Air 10/08/24 21:18 <Paloma Titus MD - Last Filed: 10/10/24 17:30> Initial Vital Signs Temperature 97.8 F 10/08/24 19:12 Temperature Source Temporal Artery Scan 10/08/24 19:12 Pulse Rate 104 H 10/08/24 19:12 Pulse Rhythm Regular 10/08/24 19:12 Pulse Strength 3+ Normal 10/08/24 19:12 Respiratory Rate 20 10/08/24 19:12 Blood Pressure 121/78 10/08/24 19:12 Blood Pressure Mean 92 10/08/24 19:12 Blood Pressure Position Sitting 10/08/24 19:12 Pulse Oximetry 98 10/08/24 19:12 Oxygen Delivery Method Room Air 10/08/24 19:12 Vital Signs Temperature 97.8 F 10/08/24 19:12 Pulse Rate 104 H 10/08/24 19:12 Respiratory Rate 20 10/08/24 19:12 Blood Pressure 121/78 10/08/24 19:12 Pulse Oximetry 98 10/08/24 19:12 Oxygen Delivery Method Room Air 10/08/24 19:12 Temperature 97.8 F 10/08/24 19:12 Pulse Rate 103 H 10/08/24 21:18 Respiratory Rate 16 10/08/24 21:18 Blood Pressure 114/70 10/08/24 21:18 Pulse Oximetry 99 10/08/24 21:18 Oxygen Delivery Method Room Air 10/08/24 21:18 <Sanford Cortes MD - Last Filed: 10/08/24 21:16> Medications Administered Medications: Discontinued Medications Generic Name Dose Route Start Last Admin Trade Name Freq PRN Reason Stop Dose Admin Sodium Chloride 500 mls @ 500 mls/hr 10/08/24 19:21 10/08/24 20:37 0.9 % Sodium Chloride 500 Ml IV 10/08/24 20:20 Infused .Q1H ONE Infusion <Paloma Titus MD - Last Filed: 10/10/24 17:30> Discontinued Medications Generic Name Dose Route Start Last Admin Trade Name Freq PRN Reason Stop Dose Admin Sodium Chloride 500 mls @ 500 mls/hr 10/08/24 19:21 10/08/24 20:37 0.9 % Sodium Chloride 500 Ml IV 10/08/24 20:20 Infused .Q1H ONE Infusion <Sanford Cortes MD - Last Filed: 10/08/24 21:16> Medical Decision Making MDM Narrative Medical decision making narrative: Sebastian -- Received this patient at change of shift pending primarily results of Clostridium difficile testing. This was negative. Discharged home per prior plan with Dr. Titus. <Sanford Cortes MD - Last Filed: 10/08/24 21:16> Lab Data Labs: Lab Results 10/08/24 10/08/24 Range/Units 19:41 20:20 WBC 6.78 (4.50-11.00) K/uL RBC 4.25 (4.00-5.20) m/uL Hgb 12.1 (12.0-16.0) gm/dL Hct 36.1 (33.0-51.0) % MCV 85 (80-100) fL MCH 29 (26-34) pg MCHC 34 (32-36) gm/dL RDW Coeff of Hiral 12.2 (11.5-15.5) % Plt Count 252 (140-440) K/uL Neut % (Auto) 51.4 (42.0-72.0) % Lymph % (Auto) 31.0 (20-44) % Merrick % (Auto) 8.1 (0.0-11.0) % Eos % (Auto) 8.8 H (0.0-7.0) % Baso % (Auto) 0.6 (0.0-3.0) % Neut # (Auto) 3.48 (1.7-7.0) K/uL Lymph # (Auto) 2.10 (0.90-2.90) K/uL Merrick # (Auto) 0.50 (0.00-0.90) K/UL Eos # (Auto) 0.60 H (0.00-0.50) K/uL Baso # (Auto) 0.04 (0.00-0.30) K/uL Abs Immat Gran (auto) 0.01 (0.00-0.30) K/uL Imm/Tot Granulo (auto) 0.1 % Sodium 139 (135-149) mmol/L Potassium 3.4 L (3.6-5.1) mmol/L Chloride 106 (96-114) mmol/L Carbon Dioxide 24 (20-32) mmol/L Anion Gap 9 (7-15) mEq/L BUN 4 L (5-24) mg/dL Creatinine 0.4 L (0.5-1.5) mg/dL Estimated Creat Clear 195.15 Estimated GFR 142 ml/min Glucose 99 (60-115) mg/dL Lactate 1.2 (0.5-1.9) mmol/L Calcium 9.0 (8.4-10.6) mg/dL C-Reactive Protein 0.6 (0.5-1.0) mg/dL Stl C. diff Tox B Gene Negative (Negative) Stl C. diff 027-NAP1-BI PRESUMPTIVE NEGATIVE (Negative) Blood Type O Positive Antibody Screen NEGATIVE <Paloma Titus MD - Last Filed: 10/10/24 17:30> Lab Results 10/08/24 10/08/24 Range/Units 19:41 20:20 WBC 6.78 (4.50-11.00) K/uL RBC 4.25 (4.00-5.20) m/uL Hgb 12.1 (12.0-16.0) gm/dL Hct 36.1 (33.0-51.0) % MCV 85 (80-100) fL MCH 29 (26-34) pg MCHC 34 (32-36) gm/dL RDW Coeff of Hiral 12.2 (11.5-15.5) % Plt Count 252 (140-440) K/uL Neut % (Auto) 51.4 (42.0-72.0) % Lymph % (Auto) 31.0 (20-44) % Merrick % (Auto) 8.1 (0.0-11.0) % Eos % (Auto) 8.8 H (0.0-7.0) % Baso % (Auto) 0.6 (0.0-3.0) % Neut # (Auto) 3.48 (1.7-7.0) K/uL Lymph # (Auto) 2.10 (0.90-2.90) K/uL Merrick # (Auto) 0.50 (0.00-0.90) K/UL Eos # (Auto) 0.60 H (0.00-0.50) K/uL Baso # (Auto) 0.04 (0.00-0.30) K/uL Abs Immat Gran (auto) 0.01 (0.00-0.30) K/uL Imm/Tot Granulo (auto) 0.1 % Sodium 139 (135-149) mmol/L Potassium 3.4 L (3.6-5.1) mmol/L Chloride 106 (96-114) mmol/L Carbon Dioxide 24 (20-32) mmol/L Anion Gap 9 (7-15) mEq/L BUN 4 L (5-24) mg/dL Creatinine 0.4 L (0.5-1.5) mg/dL Estimated Creat Clear 195.15 Estimated GFR 142 ml/min Glucose 99 (60-115) mg/dL Lactate 1.2 (0.5-1.9) mmol/L Calcium 9.0 (8.4-10.6) mg/dL C-Reactive Protein 0.6 (0.5-1.0) mg/dL Stl C. diff Tox B Gene Negative (Negative) Stl C. diff 027-NAP1-BI PRESUMPTIVE NEGATIVE (Negative) Blood Type O Positive Antibody Screen NEGATIVE <Sanford Cortes MD - Last Filed: 10/08/24 21:16> Discharge Plan Discharge Clinical Impression: Lower gastrointestinal hemorrhage, Ulcerative colitis <Paloma Titus MD - Last Filed: 10/10/24 17:30> Patient Disposition: Home, Self-Care <Paloma Titus MD - Last Filed: 10/10/24 17:30> Condition: Stable <Paloma Titus MD - Last Filed: 10/10/24 17:30> Instructions: Ulcerative Colitis (ED) <Paloma Titus MD - Last Filed: 10/10/24 17:30> Additional Instructions: Prednisone taper as follows: 3 tablets daily for 3 days, then 2 tablets daily for 3 days, then 1 tablet daily for 3 days. Please touch base with your GI clinic tomorrow to let them know that you are having increased difficulty. Return any time for severe abdominal pain, fevers, fainting, or other worsening. Oxycodone if needed for pain over the next day or 2. <Paloma Titus MD - Last Filed: 10/10/24 17:30> Prescriptions: No Action fluoxetine 20 mg capsule 10 mg PO DAILY mesalamine 0.375 gram capsule,extended release 24hr 1.5 g PO QAM prochlorperazine maleate 5 mg tablet PO <Paloma Titus MD - Last Filed: 10/10/24 17:30> Follow Up/Referrals: Ladan Lopez MD [Primary Care Provider] - <Paloma Titus MD - Last Filed: 10/10/24 17:30> Stand Alone Forms: [employer] Info Instructions <Paloma Titus MD - Last Filed: 10/10/24 17:30>
[2024-10-08] MEDS: 0.9 % SODIUM CHLORIDE 500 ML 500 ML IV (19:44)
[2024-10-08 19:45] LABS: Lactate Sepsis w/Reflex* 1.2 mmol/L (0.5-1.9)
[2024-10-08 19:48] LABS: Basophils Absolute Auto 0.04 K/uL (0.00-0.30); Basophils Percent Auto 0.6 % (0.0-3.0); Eosinophils Percent Auto 8.8 % (0.0-7.0); Hematocrit 36.1 % (33.0-51.0); Hemoglobin* 12.1 gm/dL (12.0-16.0); Immature Granulocytes Abs Auto 0.01 K/uL (0.00-0.30); Immature Granulocytes Pct Auto 0.1 %; Mean Corpuscular HGB Conc 34 gm/dL (32-36); Mean Corpuscular Hemoglobin 29 pg (26-34); Mean Corpuscular Volume 85 fL (80-100); Monocytes Percent Auto 8.1 % (0.0-11.0); Neutrophils Absolute Auto 3.48 K/uL (1.7-7.0); Neutrophils Percent Auto 51.4 % (42.0-72.0); Platelet Count* 252 K/uL (140-440); RDW Coefficient of Variation % 12.2 % (11.5-15.5); Red Blood Count 4.25 m/uL (4.00-5.20); White Blood Count* 6.78 K/uL (4.50-11.00)
[2024-10-08 19:49] LABS: Slide Review Reflex No
[2024-10-08 19:58] VITALS: BP 110/73; PULSE 97; RESP 18; O2SAT 98
[2024-10-08 20:01] LABS: Chloride* 106 mmol/L (96-114); Potassium* 3.4 mmol/L (3.6-5.1); Sodium* 139 mmol/L (135-149)
[2024-10-08 20:03] LABS: Creatinine* 0.4 mg/dL (0.5-1.5); Est. Creatinine Clearance* 195.15; Estimated Glomerular Filt Rate 142 ml/min
[2024-10-08 20:04] LABS: Anion Gap 9 mEq/L (7-15); Blood Urea Nitrogen* 4 mg/dL (5-24); Carbon Dioxide* 24 mmol/L (20-32)
[2024-10-08 20:05] LABS: Glucose* 99 mg/dL (60-115)
[2024-10-08 20:07] LABS: C Reactive Protein* 0.6 mg/dL (0.5-1.0)
[2024-10-08 21:09] LABS: C.Difficile Negative (Negative); CDIFFEPI 027 PRESUMPTIVE NEGATIVE (Negative)
[2024-10-08 21:18] VITALS: BP 114/70; PULSE 103; RESP 16; O2SAT 99
[2024-10-12 00:48] LABS: Adenovirus PCR Not Detected; Astrovirus PCR Not Detected; Campylobacter PCR Not Detected; Cryptosporidium PCR Not Detected; Cyclospora cayetanensis PCR Not Detected; Entamoeba histolytica PCR Not Detected; Enteroaggregative E coli PCR Not Detected; Enteropathogenic E coli PCR Not Detected; Enterotoxigenic E coli PCR Not Detected; Giardia lamblia PCR Not Detected; Norovirus Gi/GII PCR Not Detected; Plesiomonas shig PCR Not Detected; Rotavirus A PCR Not Detected; Salmonella PCR Not Detected; Sapovirus PCR Not Detected; Shiga toxin E coli PCR Not Detected; Shigella/Enteroinvasive E coli Not Detected; Vibrio PCR Not Detected; Vibrio cholerae PCR Not Detected; Yersinia enterocolitica PCR Not Detected
== END 2024-10-08 21:27 | disposition home or self-care (01) ==
LOC: ED 21:05
PROVIDERS: Emergency Provider Emergency Medicine; PCP General Practice
DX: K92.2 Gastrointestinal hemorrhage, unspecified (principal); K51.90 Ulcerative colitis, unspecified, without complications
CPT/HCPCS: 36415; 74019; 80048; 83605; 85025; 86140; 86850; 86900; 86901; 87493; 87505; 99284; J7030

== ENCOUNTER 2025-07-03 13:32 | Emergency (ER) | payer BC, SELFPAY ==
--- OUTSIDE RECORDS SUMMARY | 2025-07-03 13:34 | XMS_ITS | Clinical Summary ---
Author Organization [employer] [facility] Address [address] [place] [id number] Care Team Providers Care Benefits Processor Name Role Phone [facility], [facility] Primary Care Prov ider Allergies Active Allergy Reactions Criticality Noted Date Comments Amoxicillin Hives 01/10/2025 Bee Venom Protein (Honey Bee) Hives,Edema 08/14 Medications acetaminophen (TYLENOL) 325 mg tabletIndicati ons:Status post vacuum-assiste d vaginal delivery Take 1-2 tablets by mouth every 4 hours if needed (mild pain). Max acetaminophen dose: 4000mg in 24 hrs. 100 tablet 9 Active ibuprofen (MOTRIN IB) 200 mg tabletIndicati ons:Status post vacuum-assiste d vaginal delivery Take 1-3 tablets by mouth every 6 hours if needed for Other (Specify) (for uterine cramping). Take with food. 100 tablet 9 Active Ustekinumab (STELARA) 90 mg/mL syrg Inject 90 mg subcutaneous every 8 weeks. 4 10/20/20 25 Active dicyclomine (BENTYL) 10 mg capsule Take 10 mg by mouth 4 times daily if needed. 4 08/25/20 25 Active FLUoxetine (PROZAC) 40 mg capsule Take 40 mg by mouth once daily. 4 09/29/20 25 Active omeprazole (PRILOSEC) 20 mg Delayed-Releas e capsule Take 20 mg by mouth two times daily before meals. 4 09/21/20 25 Active prochlorperazi ne (COMPAZINE) 5 mg tablet Take 5 mg by mouth every 6 hours if needed. 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 Immunizations Immunization Administration Dates Next Due DTaP 06/11/2005, 1,05/17/2001,12/09,2000 DTaP-HIB (TriHIBIT) 09/06/2001 HIB-HepB (Comvax) 06/29/2001, 1,2000,04/20 HPV 9 (Gardasil 9) 03/27/2022,02/03/2021, 019 INFLUENZA, IIV3 PF (AGE >= 6 MO) 09/11/2024 Inactivated Polio Vaccine 06/11/2005,,05/17/2001,12/09,2000 Influenza A (H1N1), Live Intranasal 09/19/2009 Influenza, IIV3 (Age >=3 years) 09/19/2007 Influenza, IIV4 08/14/2019,08/04/2018 MENINGOCOCCAL VACCINE 2 VIAL 2MO-55YO (MENVEO) 08/14/2019 MMR 06/11/2005,06/29/2001 Tdap 09/30/2018,06/20/2012 Varicella Vaccine 06/20/2012,06/11/2005 Family History Medical History Relation Name Comments Huy Parkinson White syndrome Sister Relation Name Status Comments Sister Social History Tobacco Use Types Packs/Day Years Used Date Smoking Tobacco: Never Smokeless Tobacco: Never Tobacco Cessation:Counseling Given: Yes Alcohol Use Standard Drinks/Week Comments No 0 (1 standard drink = 0.6 oz pur e alcohol) PHQ-2 Answer Date Recorded PHQ-2 TOTAL SCORE 0 01/26/2022 Social Connections Answer Date Recorded Do you often feel lonely or isolated from those around you? 0 01/01/2025 Financial Resource Strain Answer Date R ecorded Difficulty of Paying Living Expenses 3 01/01/2025 Difficulty of Paying Living Expenses Not on file 01/01/2025 Food Insecurity Answer Date Recorded Do you worry your food will run out before you are able to buy more? 1 01/01/2025 Transportation Needs Answer Date Record ed Does lack of transportation keep you from medica l appointments? 1 01/01/2025 Does lack of transportation keep you from work, meetings or getting things that you need? 1 01/01/2025 Housing Stability Answer Date Recorded What is your housing situation today? 1 01/01/2025 Interpersonal Safety Answer Date Record ed Are you being hit, kicked, p ushed or yelled at (see row info)? No 01/10/2025 Interpersonal Safety Abuse 12 - 18 Not on file 01/10/2025 Interpersonal Safety Ambulatory Vulnerability No t on file 01/10/2025 Utilities Answer Date Recorded Do you have trouble paying f or utilities (for example, heat, electricity, water, phone)? 1 01/01/2025 Comments No Sex and Gender Information Value Date Recorded Sex Assigned at Not on file Legal Sex Female 7:40 AM VACUUM CA[employer] Gender Identity Not on file Sexual Orientation Not on file Obstetrics History Para Term AB IAB SAB Ectopic Multiple Livin g Live Births 1 1 1 1 1 Date Outcome GA Total Labor Labor//3rd Weight Sex Type Anes PTL Nayeli A1 A5 Name Clin 2018 Term 39w 2d M Vag Living Last Filed Vital Signs Vital Sign Reading Time Taken Comments Blood Pressure 110/70 01/10/2025 1:03 PM CDT Pulse 121 01/10/2025 1:03 PM CDT Temperature 36.8 C (98.3 F) 01/10/2025 1:03 PM CDT Respiratory Rate 18 01/10/2025 1:03 PM CDT Oxygen Saturation 98% 01/10/2025 1:03 PM CDT Inhaled Oxygen Concentration - - Weight 68 kg (150 lb) 01/10/2025 1:03 PM CDT Height 165.1 cm (5' 5) 01/10/2025 1:03 PM CDT Body Mass Index 24.96 01/10/2025 1:03 PM CDT Plan of Treatment Health Maintenance Due Date Last Done Comments COVID-19 vaccine series (#1) 02/19/2005 Depression screening for age 12+ 2012 Hepatitis C screening for age 18-79 02/19/2018 Pap test for age 21-65 02/19/2021 BMI (ht and wt on same day) for age 18+ 03/27/2023 03/27/2022, 01/26/2022, 08/14/2019, Additional history exists Influenza Vaccine (#1) 2025 , 08/14/2019, 08/04/2018, Additional history exists Tetanus booster 09/30/2028 09/30/2018, 06/20/2012 RSV vaccine for adults or (1 - 1-dose 75+ series) 02/19/2075 Hepatitis B series for 19+ Completed 06/29, 05/17/2001, 2000, Additional history exists HIV for age 15-65 Completed 08/03/2018 HPV series for age 9-26 Completed 03/27/20, 02/03/2021, 08/14/2019 Pneumococcal series for age 6-49 Aged Out No longer eligible based on patient's age to complete this topic Procedures Procedure Name Priority Date/Time Associated Diagnosis Comments ANTI HIV 1/2 Routine 08/03/2018 3:10 PM CDT , unspecified gestational age (HC) from Last 3 Months or Most Recently Relevant to Health Maintenance Results * ANTI HIV 1/2 (08/03/2018 3:10 PM CDT) HIV-1/HIV-2 ANTIBODY Non-Reacti ve Non-Reacti ve 08/04/2018 3:47 PM CDT [facility] [employer] [facility] Comment:HIV-1 p24 and HIV-1/ HIV-2 Ab not detected. Blood BLOOD SPECIMEN / Unknown Butterfly / Unknown 08/03/2018 3:10 PM CDT 08/03/2018 3:27 PM CDT us Paloma Sheehan MD SEND OUTS Final [facility] [address] [place] [address], [place] from Last 3 Months or Most Recently Relevant to Health Maintenance Insurance [facility] Advance Directives * Full Code (Latest Code Status on File) Date Activated Date Inactivated Comments 12/04/2018 4:11 AM 12/05/2018 3:42 PM Care Teams Benefits Processor Relationship Specialty Start Date End [facility] [address] [place] [id number] PCP - General 01/23/21
[2025-07-03 13:44] VITALS: BP 114/73; PULSE 97; RESP 16; TEMP 36.6; O2SAT 98; BMI 27.1
[2025-07-03 14:25] LABS: Lactate* 1.4 mmol/L (0.5-1.9)
[2025-07-03 14:30] LABS: Strep A DNA Probe* NOT DETECTED (Not Detectd)
[2025-07-03 14:33] LABS: Mono Screen* Negative (Negative)
[2025-07-03 14:40] LABS: Hematocrit 32.6 % (33.0-51.0); Hemoglobin* 10.8 gm/dL (12.0-16.0); Immature Granulocytes Abs Auto 0.06 K/uL (0.00-0.30); Immature Granulocytes Pct Auto 0.9 %; Lymphocytes Absolute Auto 1.76 K/uL (0.90-2.90); Mean Corpuscular HGB Conc 33 gm/dL (32-36); Mean Corpuscular Hemoglobin 26 pg (26-34); Mean Corpuscular Volume 80 fL (80-100); RDW Coefficient of Variation % 14.0 % (11.5-15.5); Red Blood Count 4.10 m/uL (4.00-5.20); White Blood Count* 7.05 K/uL (4.50-11.00)
[2025-07-03 14:41] LABS: Appearance Urine Clear (Clear)
[2025-07-03 14:43] LABS: Albumin* 4.5 g/dL (3.3-5.0); Chloride* 106 mmol/L (96-114)
[2025-07-03 14:43] LABS: PCR FLU A Negative PCR FLU A (Negative); PCR FLU B Negative PCR FLU B (Negative); SARS PCR* Negative SARS-CoV-2 (Negative)
[2025-07-03 14:44] LABS: Potassium* 3.4 mmol/L (3.6-5.1); Sodium* 140 mmol/L (135-149)
[2025-07-03 14:45] LABS: Slide Review Reflex No
--- NOTE | 2025-07-03 14:45 | ED.GENADULT ---
HPI - General Adult General Chief complaint: Unspecified Complaint, Adult Stated complaint: Sore throat, headache, loss of appetite Time Seen by Provider: 07/03/25 13:35 Source: patient Mode of arrival: ambulatory Limitations: no limitations History of Present Illness HPI narrative: 25-year-old female coming in today not feeling well. She states she has not felt well for about a month. She states that in the last week or so she developed or sore throat. No fevers or chills. She feels nauseated often. Patient does have a history of ulcer colitis and states that she has had lower abdominal pain for the last month. She has 1 episode of soft stools daily. She denies any increased urinary frequency, urgency or dysuria. She had her menses last week, denies . She states that she has had a decreased appetite for the the last month but has not lost any weight. Patient states that she was recently reunited with her biological father and learned that there are multiple cancers and heart disease on that side of the family and this has her quite concerned. Related Data Home Medications ?Medication ?Instructions ?Recorded ?Confirmed mesalamine 0.375 gram 1.5 g PO QAM 07/22/24 07/03/25 capsule,extended release 24 hr prochlorperazine maleate 5 mg PO 10/08/24 tablet albuterol sulfate 90 mcg/actuation inhalation 07/03/25 aerosol inhaler bupropion HCl 300 mg 24 hr tablet, 300 mg PO DAILY 07/03/25 07/03/25 extended release diltiazem HCl 120 mg 120 mg PO DAILY 07/03/25 07/03/25 capsule,extended release 24 hr epinephrine 0.3 mg/0.3 mL 1 mg IM DAILY 07/03/25 07/03/25 injection, auto-injector fluoxetine 40 mg capsule 40 mg PO DAILY 07/03/25 07/03/25 mesalamine 1,000 mg rectal 1,000 mg AL QPM 07/03/25 07/03/25 suppository ustekinumab 90 mg/mL subcutaneous mg subcut 07/03/25 syringe (Stelara) Allergies Allergy/AdvReac Type Severity Reaction Status Date / Time venom-honey bee Allergy Severe Anaphylaxis Verified 07/03/25 13:44 amoxicillin Allergy Intermediate Rash Verified 07/03/25 13:44 Review of Systems Status of ROS: Reports: 10 or more systems reviewed and unremarkable except as noted in History and below [facility] Social History Smoking Status: Never smoker Do you use any of these nicotine containing products: None Second hand tobacco smoke exposure: No How often do you have a drink containing alcohol: never How often do you have six or more drinks on one occasion: Never AUDIT-C Alcohol total score: 0 Non-prescribed substance use: denies use service: No Exam Narrative: Exam Narrative: Well-nourished well-developed patient in no acute distress. Alert and oriented. Answers questions appropriately. Mood and affect are appropriate. Thoughts are goal oriented and rational. No tangential or magical thinking noted. Patient speaks in full sentences without needing to catch her breath. HEENT: Normocephalic atraumatic. Pupils are equally round reactive to light. Extraocular muscles are intact. Conjunctivae are moist without any icterus noted. Moist mucous membranes. Posterior pharynx is normal. Neck is soft without any lymphadenopathy or thyromegaly. No masses are appreciated. Cardiovascular: Heart is regular rate and rhythm S1 and S2 are present without any murmurs. Lungs: Clear to auscultation bilaterally no wheezes rhonchi or rales are appreciated. Patient takes deep breaths without any discomfort. Abdomen: Soft and nontender nondistended with normal bowel sounds. No guarding or rebound. No masses or organomegaly appreciated. Extremities: Bilateral lower extremities are without edema. Normal DP and PT pulses. Skin: Well perfused without any obvious rashes. Const: Vital Signs, click to edit/add: Vital Signs - 24 hr 07/03/25 13:44 Temperature 97.9 F Pulse Rate [Pulse Oximeter] 97 Respiratory Rate 16 Blood Pressure [Ri ght Upper Arm] 114/73 Pulse Oximetry 98 Course Course ED Course: Differential diagnoses includes , abdominal cramping, ulcerative colitis complication or inflammation, viral syndrome, mono, strep. Patient's workup workup today is unremarkable. She does have mild anemia with a hemoglobin of 10.8 and hematocrit of 32.6. Vital Signs Vital signs: Initial Vital Signs Temperature 97.9 F 07/03/25 13:44 Temperature Source Temporal Artery Scan 07/03/25 13:44 Pulse Rate 97 07/03/25 13:44 Respiratory Rate 16 07/03/25 13:44 Blood Pressure 114/73 07/03/25 13:44 Blood Pressure Mean 86 07/03/25 13:44 Blood Pressure Position Sitting 07/03/25 13:44 Pulse Oximetry 98 07/03/25 13:44 Vital Signs Temperature 97.9 F 07/03/25 13:44 Pulse Rate 97 07/03/25 13:44 Respiratory Rate 16 07/03/25 13:44 Blood Pressure 114/73 07/03/25 13:44 Pulse Oximetry 98 07/03/25 13:44 Temperature 97.9 F 07/03/25 13:44 Pulse Rate 97 07/03/25 13:44 Respiratory Rate 16 07/03/25 13:44 Blood Pressure 114/73 07/03/25 13:44 Pulse Oximetry 98 07/03/25 13:44 Medical Decision Making MDM Narrative Medical decision making narrative: Mild flu-like symptoms with abdominal discomfort, afebrile. We discussed symptomatic treatment. Lab Data Lab results reviewed: Yes I reviewed the patient's lab results Labs: Lab Results 07/03/25 07/03/25 07/03/25 Range/Units 13:50 14:20 14:35 WBC 7.05 (4.50-11.00) K/uL RBC 4.10 (4.00-5.20) m/uL Hgb 10.8 L (12.0-16.0) gm/dL Hct 32.6 L (33.0-51.0) % MCV 80 (80-100) fL MCH 26 (26-34) pg MCHC 33 (32-36) gm/dL RDW Coeff of Hiral 14.0 (11.5-15.5) % Plt Count 280 (140-440) K/uL Neut % (Auto) 65.4 (42.0-72.0) % Lymph % (Auto) 25.0 (20-44) % [place] % (Auto) 7.2 (0.0-11.0) % Eos % (Auto) 1.1 (0.0-7.0) % Baso % (Auto) 0.4 (0.0-3.0) % Neut # (Auto) 4.61 (1.7-7.0) K/uL Lymph # (Auto) 1.76 (0.90-2.90) K/uL [place] # (Auto) 0.50 (0.00-0.90) K/UL Eos # (Auto) 0.08 (0.00-0.50) K/uL Baso # (Auto) 0.03 (0.00-0.30) K/uL Abs Immat Gran (auto) 0.06 (0.00-0.30) K/uL Imm/Tot Granulo (auto) 0.9 % Sodium 140 (135-149) mmol/L Potassium 3.4 L (3.6-5.1) mmol/L Chloride 106 (96-114) mmol/L Carbon Dioxide 26 (20-32) mmol/L Anion Gap 8 (7-15) mEq/L BUN 5 (5-24) mg/dL Creatinine 0.5 (0.5-1.5) mg/dL Estimated Creat Clear 154.77 Estimated GFR 133 ml/min Glucose 104 (60-115) mg/dL Lactate 1.4 (0.5-1.9) mmol/L Calcium 8.8 (8.4-10.6) mg/dL Total Bilirubin 0.3 (0.1-1.5) mg/dL Direct Bilirubin 0.1 (0.0-0.5) mg/dL AST 29 (12-35) U/L ALT 21 (4-35) U/L Alkaline Phosphatase 70 (40-150) U/L C-Reactive Protein < 0.5 L (0.5-1.0) mg/dL Total Protein 7.4 (6.0-8.3) g/dL Albumin 4.5 (3.3-5.0) g/dL Lipase 180 (23-300) U/L Procalcitonin < 0.03 L (<0.50) ng/mL Urine Color Yellow (Yellow) Urine Appearance Clear (Clear) Urine pH 5.5 (5.0-8.5) Ur Specific [place] <= 1.005 (1.000-1.030) Urine Protein Negative (Negative) Urine Glucose (UA) Negative (Negative) Urine Ketones Negative (Negative) Urine Blood Negative (Negative) Urine Nitrite Negative (Negative) Urine Bilirubin Negative (Negative) Urine Urobilinogen 0.2 (0.2-1.0) Ur Leukocyte Esterase Negative (Negative) Urine RBC 0-2 (0-2) Urine WBC 0-2 (0-5) Ur Squamous Epith Cells Few (None-Few) Urine Bacteria None (None) Urine HCG, Qual Negative (Negative) SARS-CoV-2 (PCR) Negative SARS-CoV-2 (Negative) Monoscreen Negative (Negative) Influenza Type A (PCR) Negative PCR FLU A (Negative) Influenza Type B (PCR) Negative PCR FLU B (Negative) Group A Strep DNA NOT DETECTED (Not Detectd) Discharge Plan Discharge Clinical Impression: Sore throat, Abdominal pain Patient Disposition: Home, Self-Care Condition: Stable Additional Instructions: Your workup today did not reveal any evidence of infection or inflammation. All organs functioning well. He do have very mild anemia-this can often times happen if you have heavy periods. Do recommend you follow-up with primary care provider to discuss this in the next few weeks. Return to the emergency department if you develop fever, worsening pain or vomiting. Prescriptions: No Action mesalamine 0.375 gram capsule,extended release 24hr 1.5 g PO QAM prochlorperazine maleate 5 mg tablet PO fluoxetine 40 mg capsule 40 mg PO DAILY diltiazem HCl 120 mg capsule,extended release 24hr 120 mg PO DAILY epinephrine 0.3 mg/0.3 mL auto-injector 1 mg IM DAILY albuterol sulfate 90 mcg/actuation HFA aerosol inhaler inhalation bupropion HCl 300 mg tablet extended release 24 hr 300 mg PO DAILY mesalamine 1,000 mg suppository 1,000 mg AL QPM ustekinumab [Stelara] 90 mg/mL syringe subcut Follow Up/Referrals: Ladan Lopez MD [Primary Care Provider, [facility]] [facility]: [facility] Inst[facility]
[2025-07-03 14:46] LABS: Blood Urea Nitrogen* 5 mg/dL (5-24); Creatinine* 0.5 mg/dL (0.5-1.5); Est. Creatinine Clearance* 154.77; Estimated Glomerular Filt Rate 133 ml/min
[2025-07-03 14:47] LABS: Alanine Aminotransferase* 21 U/L (4-35); Alkaline Phosphatase* 70 U/L (40-150); Anion Gap 8 mEq/L (7-15); Aspartate Amino Transferase* 29 U/L (12-35); Bilirubin Direct* 0.1 mg/dL (0.0-0.5); Bilirubin Total* 0.3 mg/dL (0.1-1.5); Calcium* 8.8 mg/dL (8.4-10.6); Carbon Dioxide* 26 mmol/L (20-32); Glucose* 104 mg/dL (60-115); Total Protein* 7.4 g/dL (6.0-8.3)
[2025-07-03 14:50] LABS: Ur HCG Qualitative* Negative (Negative)
[2025-07-03 15:06] LABS: Procalcitonin* < 0.03 ng/mL (<0.50)
== END 2025-07-03 15:38 | disposition home or self-care (01) ==
PROVIDERS: Emergency Provider Family Medicine; PCP General Practice
DX: J02.9 Acute pharyngitis, unspecified (principal); R10.9 Unspecified abdominal pain; D64.9 Anemia, unspecified
CPT/HCPCS: 36415; 80048; 80076; 81001; 81025; 83605; 83690; 84145; 85025; 86140; 86308; 87086; 87631; 87651; 99283; 99284